=== PATIENT | male | born 1980 | race Caucasian/White ===

== ENCOUNTER 2016-11-08 09:59 | Emergency (ER) | payer OTHER ==
--- NOTE | 2016-11-08 12:04 | ED NURSING NOTES ---
Clinical Report - Nurses [facility] [address] [place] [address] 11/08/2016 10:03 Patient: EJ LAO TRIAGE Triage time 1012. Acuity: LEVEL 3. Chief Complaint: VISION PROBLEM TO RIGHT EYE. VISUAL ACUITY: Visual acuity performed without corrective lenses: left eye 20/20 minus one letter; right eye 20/30. Patient does not wear corrective lenses. --10:36 Brisa Hollins R.N. 10:12 11/08/16. BP: 132/73. HR: 72. RR: 16. O2 saturation: 97% on room air. Temp: 98.2 F. Pain level now: 5/10. --10:36 Brisa Hollins R.N. Weight: 83.9 kg stated. Height/Length: 67 inches Per Patient. BMI: 29. --10:34 Brisa Hollins R.N. Medications None. --10:33 Brisa Hollins R.N. 400mg motrin last night. --10:33 Brisa Hollins R.N. Allergies Codeine.(hives) --10:33 Brisa Hollins R.N. History Arrived by private vehicle. Historian: patient. Accompanied by co-worker. No primary care physician. This started last night. Onset. (significantly worse about 1 hour ago). ( Pt states he has had redness on his face for about 1 a month on eyebrow area- now going down to right cheek area . Pt has had some pressure inside eye itself since last night- but got significantly worse about 1 hour ago while driving. had blurry vision and states pain was a 10/10). PAST MEDICAL HX: Negative. SURGERY HX: Back surgery. Fusion at L5-S1. SOCIAL HX: Heavy tobacco smoker (cigarette)- 1 pack per day. No alcohol use or drug use. --10:36 Brisa Hollins R.N. Interventions ID band on patient. To treatment room. --10:36 Brisa Hollins R.N. PHYSICAL ASSESSMENT 10:12. Ambulatory to room. GENERAL / NEURO / PSYCH: Alert. Appears in no acute distress. Appears anxious. HEENT: No facial asymmetry noted. ( swelling to soft tissue on right eye lid area. some redness noted to rt face). Photophobia present. RESPIRATORY: Respirations not labored. CVS: Capillary refill less than 2 seconds. SKIN: Skin is warm and dry. --10:37 Brisa Hollins R.N. NURSING PROGRESS NOTES 10:12. Reassurance given. Lights dimmed. Patient identifiers checked. Call light placed in reach. Side rails up. Bed placed in lowest position. Patient ready for evaluation- chart flagged. --10:36 Brisa Hollins R.N. 11:00 11/08/2016 Alcaine eye drops * Topical 2 drops bottle given to ERMD for rodrigue exam --11:21 Brisa Hollins R.N. 11:30. ( ERMD in doing exam). --11:52 Brisa Hollins R.N. 11:35. ( ERMD using slit lamp and rodrigue after use of alcaine drops,.). --16:43 Brisa Hollins R.N. DISPOSITION / DISCHARGE 12:20. Condition at departure: stable. No learning barriers present. Discharge instructions provided and reviewed with the patient. Reviewed medication(s) (gentamycin oint). Patient verbalized understanding. Written instructions provided in Latvian. The patient was discharged home and accompanied by apple checker. He left the Emergency Department ambulatory and via private vehicle. Freelance Programmer/App Developer driving. --16:45 Brisa Hollins R.N. 12:20 11/08/16. BP: 122/68. HR: 68. RR: 16. O2 saturation: 98% on room air. Temp: deferred. Pain level now: 08/06. --16:45 Brisa Hollins R.N. Locked/Released at 11/08/2016 16:46 by Brisa Hollins R.N.
--- NOTE | 2016-11-08 12:04 | ED CLINICAL REPORT ---
Clinical Report - Physicians/[facility] [address] [place] [address] 11/08/2016 10:03 Patient: EJ LAO Time Seen: 11:18. Arrived- By private vehicle. Historian- patient. HISTORY OF PRESENT ILLNESS Chief Complaint: EYE PAIN and DISCOMFORT pressure. This started last night, involves the right eye, is characterized as moderate in severity and has been constant. The patient may have sustained an injury. This occurred at work. He has had chemical exposure (fiberglass). He possibly has unknown foreign material in the right eye. Not injured from contact lenses. No UV light exposure. Eye discomfort and irritation. Photophobia. REVIEW OF SYSTEMS No chills, fever, sweats, calf pain or chest pain. No cough, difficulty breathing, pedal edema, palpitations or abdominal pain. No constipation, diarrhea, nausea, vomiting or urinary problems. All systems otherwise negative, except as recorded above. PAST HISTORY Tetanus immunization status is up-to-date. Problems: no known problems. Additional Surgeries: Back Surgery. Medications: 400mg motrin last night. None. Allergies: Codeine.(hives). SOCIAL HISTORY Current every day heavy tobacco smoker (cigarette)- 1 pack per day. No alcohol use or drug use. FAMILY HISTORY Cancer in first-degree relative (mother). ADDITIONAL NOTES The nursing notes have been reviewed. PHYSICAL EXAM Vital Signs: 11/08/2016 10:12 BP: 132/73. HR: 72. RR: 16. O2 saturation: 97%. Temp: 98.2 F. Pain level now: 5/10. Have been reviewed. Appearance: Alert. HEENT: Pharynx normal. Rt Eye: Injected conjunctiva. Intraocular pressure is 18 mm Hg. No conjunctival foreign body, injury to the conjunctiva or sclera or corneal foreign body or abrasion. No fluorescein dye uptake. Eyes: Visual acuity noted- see nurse's notes. Right eyelid everted for examination. Right cornea examined with fluorescein stain. Eyelids appear normal to inspection. Pupils equal, round and reactive to light. Accommodation normal. Funduscopic exam normal. EOMs intact. Periorbital areas appear normal to inspection. Right eye examined with slit lamp. Anterior chambers clear. Anterior chambers of normal depth. Lt Eye: Left eye exam normal. Neck: Neck supple. Normal inspection. CVS: Normal heart rate and rhythm. Heart sounds normal. Respiratory: Breath sounds normal. Abdomen: Nontender. No organomegaly. Skin: No rash. Extremities: Extremities negative. PROGRESS AND PROCEDURES Course of Care: Patient is stable. Patient/family counseled. Old medical records ordered. Disposition: Discharged. Condition: stable. CLINICAL IMPRESSION Acute conjunctivitis of the right eye. INSTRUCTIONS Do not work today, tomorrow. Warnings: GENERAL WARNINGS: Return or contact your physician immediately if your condition worsens or changes unexpectedly, if not improving as expected, or if other problems arise. Prescription Medications: Gentamicin ophthalmic ointment 0.3% : Apply 1/2 inch to inner aspect of the lower lid on the affected eye every 8 hours for 1 week. Dispense three and one half (3.5) gm. No refills. Follow-up: Follow up with your doctor in four days if not better. Understanding of the discharge instructions verbalized by patient. (Electronically signed by Nolan Clark MD 11/10/2016 10:14)
--- NOTE | 2016-11-08 12:04 | ED NURSING NOTES ---
Clinical Report - Nurses [facility] [address] [place] [address] 11/08/2016 10:03 Patient: EJ LAO TRIAGE Triage time 1012. Acuity: LEVEL 3. Chief Complaint: VISION PROBLEM TO RIGHT EYE. VISUAL ACUITY: Visual acuity performed without corrective lenses: left eye 20/20 minus one letter; right eye 20/30. Patient does not wear corrective lenses. --10:36 Brisa Hollins R.N. 10:12 11/08/16. BP: 132/73. HR: 72. RR: 16. O2 saturation: 97% on room air. Temp: 98.2 F. Pain level now: 5/10. --10:36 Brisa Hollins R.N. Weight: 83.9 kg stated. Height/Length: 67 inches Per Patient. BMI: 29. --10:34 Brisa Hollins R.N. Medications None. --10:33 Brisa Hollins R.N. 400mg motrin last night. --10:33 Brisa Hollins R.N. Allergies Codeine.(hives) --10:33 Brisa Hollins R.N. History Arrived by private vehicle. Historian: patient. Accompanied by co-worker. No primary care physician. This started last night. Onset. (significantly worse about 1 hour ago). ( Pt states he has had redness on his face for about 1 a month on eyebrow area- now going down to right cheek area . Pt has had some pressure inside eye itself since last night- but got significantly worse about 1 hour ago while driving. had blurry vision and states pain was a 10/10). PAST MEDICAL HX: Negative. SURGERY HX: Back surgery. Fusion at L5-S1. SOCIAL HX: Heavy tobacco smoker (cigarette)- 1 pack per day. No alcohol use or drug use. --10:36 Brisa Hollins R.N. Interventions ID band on patient. To treatment room. --10:36 Brisa Hollins R.N. PHYSICAL ASSESSMENT 10:12. Ambulatory to room. GENERAL / NEURO / PSYCH: Alert. Appears in no acute distress. Appears anxious. HEENT: No facial asymmetry noted. ( swelling to soft tissue on right eye lid area. some redness noted to rt face). Photophobia present. RESPIRATORY: Respirations not labored. CVS: Capillary refill less than 2 seconds. SKIN: Skin is warm and dry. --10:37 Brisa Hollins R.N. NURSING PROGRESS NOTES 10:12. Reassurance given. Lights dimmed. Patient identifiers checked. Call light placed in reach. Side rails up. Bed placed in lowest position. Patient ready for evaluation- chart flagged. --10:36 Brisa Hollins R.N. 11:00 11/08/2016 Alcaine eye drops * Topical 2 drops bottle given to ERMD for rodrigue exam --11:21 Brisa Hollins R.N. 11:30. ( ERMD in doing exam). --11:52 Brisa Hollins R.N. 11:35. ( ERMD using slit lamp and rodrigue after use of alcaine drops,.). --16:43 Brisa Hollins R.N. DISPOSITION / DISCHARGE 12:20. Condition at departure: stable. No learning barriers present. Discharge instructions provided and reviewed with the patient. Reviewed medication(s) (gentamycin oint). Patient verbalized understanding. Written instructions provided in Tajik. The patient was discharged home and accompanied by bandage winding machine operator. He left the Emergency Department ambulatory and via private vehicle. Naphthalene Operator Helper driving. --16:45 Brisa Hollins R.N. 12:20 11/08/16. BP: 122/68. HR: 68. RR: 16. O2 saturation: 98% on room air. Temp: deferred. Pain level now: 08/06. --16:45 Brisa Hollins R.N. Locked/Released at 11/08/2016 16:46 by Brisa Hollins R.N.
--- NOTE | 2016-11-08 12:04 | ED ORDER SUMMARY ---
..... Patient: EJ LAO OrderSheet [facility] VisitID: [id number] [address] [place] [address] 35y, M Registration Date/Time: 11/08/2016 ORDER SHEET Weight: 83.9 kg (stated) Allergies: Codeine GENERAL ORDERS: MEDICATION ORDERS: Alcaine Eye Drops (Solution 0.5 %) 2 drops (bottle out for ERMD for rodrigue exam ) (11:19 11/08/2016 DDearajesh RHerberNHerber verbal order read back to Blanca DOSS) (11:21 DDearajesh R.NHerber) IV FLUIDS: ORDER SHEET NOTES: [Electronically signed by Brisa Hollins R.N. (16:46 11/08/2016)] [Electronically signed by Nolan Clark MD (10:14 11/10/2016)] [Electronically locked/signed by Brisa Hollins R.N. (16:46 11/08/2016)]
--- NOTE | 2016-11-08 12:04 | ED ORDER SUMMARY ---
..... Patient: EJ LAO OrderSheet [facility] VisitID: [id number] [address] [place] [address] 35y, M Registration Date/Time: 11/08/2016 ORDER SHEET Weight: 83.9 kg (stated) Allergies: Codeine GENERAL ORDERS: MEDICATION ORDERS: Alcaine Eye Drops (Solution 0.5 %) 2 drops (bottle out for ERMD for rodrigue exam ) (11:19 11/08/2016 DDearajesh RHerberNHerber verbal order read back to Blanca DOSS) (11:21 DDearajesh R.NHerber) IV FLUIDS: ORDER SHEET NOTES: [Electronically signed by Brisa Hollins R.N. (16:46 11/08/2016)] [Electronically signed by Nolan Clark MD (10:14 11/10/2016)] [Electronically locked/signed by Brisa Hollins R.N. (16:46 11/08/2016)]
--- NOTE | 2016-11-10 10:14 | ED MED RECONCILIATION SUMMARY ---
Patient: EJ LAO Medication Reconciliation Report [facility] VisitID: [id number] [address] [place] [address] 35y, M Registration Date/Time: 11/08/2016 Weight: 83.9 kg Height/Length: 67 in. BMI: 29.0 ALLERGIES: Codeine The patient's Home Medications are listed below: THE FOLLOWING MEDICATIONS NEED TO BE RECONCILED: 400mg motrin last night The source(s) of the original Home Medication information: Not obtained. The following Medications were given to the patient in the Emergency Department: Alcaine eye drops Topical 2 drops, administered: 11/08/2016 11:00:00 AM The following Medications were prescribed to the patient: Gentamicin ophthalmic ointment 0.3% : Apply 1/2 inch to inner aspect of the lower lid on the affected eye every 8 hours for 1 week. Dispense three and one half (3.5) gm. No refills. -- Nolan Clark MD
--- NOTE | 2016-11-10 10:14 | ED DISCHARGE INSTRUCTIONS ---
Patient: EJ LAO General Instructions [facility] VisitID: [id number] [address] [place] [address] 35y, M Registration Date/Time: 11/08/2016 Acute conjunctivitis of the right eye. INSTRUCTIONS Do not work today, tomorrow. Warnings: GENERAL WARNINGS: Return or contact your physician immediately if your condition worsens or changes unexpectedly, if not improving as expected, or if other problems arise. Prescription Medications: Gentamicin ophthalmic ointment 0.3% : Apply 1/2 inch to inner aspect of the lower lid on the affected eye every 8 hours for 1 week. Dispense three and one half (3.5) gm. No refills. Follow-up: Follow up with your doctor in four days if not better. Understanding of the discharge instructions verbalized by patient. ADDITIONAL INFORMATION Conjunctivitis, Non-Specific The membrane that covers your eye is inflamed. Any itching, burning or irritation should go away within the next 24 hours. Conjunctivitis may be related to a particle that was in your eye. If so, it was washed out with your tears or irrigation treatment. Being exposed to liquid chemicals or fumes may also cause this reaction. Your condition does not appear to be due to an eye infection. Home Care: Apply a cold pack (ice in a plastic bag, wrapped in a towel) over the eye for 20 minutes at a time. This will reduce pain. Eye drops may be prescribed to reduce irritation or redness. Otherwise, Visine or similar [id number] decongestant eye drops may be used. You may use acetaminophen (Tylenol) or ibuprofen (Motrin, Advil) to control pain, unless another medicine was prescribed. [ NOTE: If you have chronic liver or kidney disease or ever had a stomach ulcer or GI bleeding, talk with your doctor before using these medicines.] Follow Up with your doctor or this facility as directed, or if your symptoms have not improved after 24 hours. Get Prompt Medical Attention if any of the following occur: Increased eyelid swelling Increase in eye pain Increased redness or drainage from the eye Failure of normal vision to return within 24-48 hours. You have been given the following additional information: Conjunctivitis, Non-Specific Do not work today, tomorrow. (Electronically signed by Nolan Clark MD 11/10/2016 10:14)
--- NOTE | 2016-11-10 10:14 | ED MAR SUMMARY ---
..... Medication Administration Record [facility] [address] [place] [address] Patient: EJ LAO Visit ID: [id number] 35y, M Weight: 83.9 kg Height/Length: 67 in BMI: 29 ALLERGIES: Codeine Given 11:00 11/08/2016 Gurvinder, Edenilson Ledezma Medication Administered: Alcaine eye drops *, Dose: 2 drops * Topical. Medication Ordered: Alcaine Eye Drops (Solution 0.5 %) 2 drops (bottle out for ERMD for rodrigue exam ).
--- NOTE | 2016-11-10 10:14 | ED MED RECONCILIATION SUMMARY ---
Patient: EJ LAO Medication Reconciliation Report [facility] VisitID: [id number] [address] [place] [address] 35y, M Registration Date/Time: 11/08/2016 Weight: 83.9 kg Height/Length: 67 in. BMI: 29.0 ALLERGIES: Codeine The patient's Home Medications are listed below: THE FOLLOWING MEDICATIONS NEED TO BE RECONCILED: 400mg motrin last night The source(s) of the original Home Medication information: Not obtained. The following Medications were given to the patient in the Emergency Department: Alcaine eye drops Topical 2 drops, administered: 11/08/2016 11:00:00 AM The following Medications were prescribed to the patient: Gentamicin ophthalmic ointment 0.3% : Apply 1/2 inch to inner aspect of the lower lid on the affected eye every 8 hours for 1 week. Dispense three and one half (3.5) gm. No refills. -- Nolan Clark MD
--- NOTE | 2016-11-10 10:14 | ED DISCHARGE INSTRUCTIONS ---
Patient: EJ LAO General Instructions [facility] VisitID: [id number] [address] [place] [address] 35y, M Registration Date/Time: 11/08/2016 Acute conjunctivitis of the right eye. INSTRUCTIONS Do not work today, tomorrow. Warnings: GENERAL WARNINGS: Return or contact your physician immediately if your condition worsens or changes unexpectedly, if not improving as expected, or if other problems arise. Prescription Medications: Gentamicin ophthalmic ointment 0.3% : Apply 1/2 inch to inner aspect of the lower lid on the affected eye every 8 hours for 1 week. Dispense three and one half (3.5) gm. No refills. Follow-up: Follow up with your doctor in four days if not better. Understanding of the discharge instructions verbalized by patient. ADDITIONAL INFORMATION Conjunctivitis, Non-Specific The membrane that covers your eye is inflamed. Any itching, burning or irritation should go away within the next 24 hours. Conjunctivitis may be related to a particle that was in your eye. If so, it was washed out with your tears or irrigation treatment. Being exposed to liquid chemicals or fumes may also cause this reaction. Your condition does not appear to be due to an eye infection. Home Care: Apply a cold pack (ice in a plastic bag, wrapped in a towel) over the eye for 20 minutes at a time. This will reduce pain. Eye drops may be prescribed to reduce irritation or redness. Otherwise, Visine or similar jyxj-zra-igglzij decongestant eye drops may be used. You may use acetaminophen (Tylenol) or ibuprofen (Motrin, Advil) to control pain, unless another medicine was prescribed. [ NOTE: If you have chronic liver or kidney disease or ever had a stomach ulcer or GI bleeding, talk with your doctor before using these medicines.] Follow Up with your doctor or this facility as directed, or if your symptoms have not improved after 24 hours. Get Prompt Medical Attention if any of the following occur: Increased eyelid swelling Increase in eye pain Increased redness or drainage from the eye Failure of normal vision to return within 24-48 hours. You have been given the following additional information: Conjunctivitis, Non-Specific Do not work today, tomorrow. (Electronically signed by Nolan Clark MD 11/10/2016 10:14)
--- NOTE | 2016-11-10 10:14 | ED MAR SUMMARY ---
..... Medication Administration Record [facility] [address] [place] [address] Patient: EJ LAO Visit ID: [id number] 35y, M Weight: 83.9 kg Height/Length: 67 in BMI: 29 ALLERGIES: Codeine Given 11:00 11/08/2016 Gurvinder, Edenilson Ledezma Medication Administered: Alcaine eye drops *, Dose: 2 drops * Topical. Medication Ordered: Alcaine Eye Drops (Solution 0.5 %) 2 drops (bottle out for ERMD for rodrigue exam ).
== END 2016-11-08 12:20 | disposition home or self-care (01) ==
LOC: ED SRH 09:59
DX: H10.31 Unspecified acute conjunctivitis, right eye (principal); F17.210 Nicotine dependence, cigarettes, uncomplicated; Z88.5 Allergy status to narcotic agent